=== PATIENT | female | born 1980 ===

== ENCOUNTER 2017-07-15 18:13 | Emergency (ER) | payer OTHER ==
[2017-07-15 18:20] VITALS: BMI 25.8
[2017-07-15 18:41] VITALS: PULSE 80; TEMP 98.1
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
[2017-07-15 19:10] LABS: BASO # 0.04 K/mm3 (0.0-2.0); BASO % 0.6 % (0.0-3.0); EOS # 0.1 (0.0-0.7); GRAN # 4.98 (1.4-6.5); GRAN % 72.8 % (50.0-68.0); HEMOGLOBIN 11.3 g/dL (12.0-16.0); LYMPH # 1.5 (1.2-3.4); LYMPH % 21.5 % (22.0-35.0); MEAN CELL VOLUME 82.8 fl (80.0-105.0); MEAN CORPUSCULAR HGB CONC 32.7 g/dl (31.0-37.0); MEAN PLATELET VOLUME 12.5 fl (7.0-11.0); MONO # 0.2 (0.1-0.6); MONO % 3.1 % (1.0-6.0); RBC 4.18 10^6/uL (3.5-6.1); RED CELL DISTRIBUTION WIDTH 14.3 % (11.5-14.5); WHITE BLOOD COUNT 6.8 10^3/ul (4.5-11.0)
[2017-07-15 19:11] LABS: PH,URINE 7.5 (4.7-8.0); URINE BILIRUBIN NEGATIVE (NEGATIVE); URINE BLOOD NEGATIVE (NEGATIVE); URINE GLUCOSE (UA) NEGATIVE (NEGATIVE); URINE LEUKOCYTE ESTERASE NEGATIVE Leu/uL (NEGATIVE); URINE NITRATE NEGATIVE (NEGATIVE); URINE PROTEIN NEGATIVE mg/dL (<30 mg/dL); URINE UROBILINOGEN 0.2 E.U./dL (<1 E.U./dL)
[2017-07-15 19:14] LABS: ALB/GLOB RATIO 1.3 (1.1-1.8); ALT/SGPT 36 U/L (7-56); AST/SGOT 42 U/L (14-36); BLOOD UREA NITROGEN 24 mg/dL (7-21); CALCIUM 9.9 mg/dL (8.4-10.5); GFR AFRICAN-AMERICAN > 60; GFR NON-AFRICAN AMERICAN > 60; URINE APPEARANCE CLEAR (CLEAR); URINE COLOR LIGHT YELLOW (YELLOW)
[2017-07-15 19:16] LABS: INR 0.97 (0.93-1.08); PROTHROMBIN TIME 11.1 SECONDS (9.4-12.5)
[2017-07-15 19:31] LABS: TROPONIN I < 0.01 ng/mL
[2017-07-15 20:37] VITALS: BP 128/67; RESP 16; O2SAT 100
--- NOTE | 2017-07-16 10:48 | CARD ---
APPROVED REPORT EKG Measurement Heart [id number] <Conclusion> Normal sinus rhythm Normal ECG
--- NOTE | 2017-07-16 19:25 | US ---
PROCEDURE: Left lower extremity venous US HISTORY: Leg pain and swelling. Evaluate for DVT. PHYSICIAN(S): Isreal Barahona MD. TECHNIQUE: Duplex sonography and color-flow Doppler with graded compression were used to evaluate the deep venous system of the left lower extremity. FINDINGS: The visualized deep venous system of the left lower extremity is sonographically normal and compressible. Normal wave forms and augmentation are seen. There is no sonographic evidence for deep venous thrombosis in the visualized segments of the left lower extremity. IMPRESSION: 1. No sonographic evidence for deep venous thrombosis in the visualized segments of the left lower extremity.
== END 2017-07-15 20:47 | disposition left against medical advice (07) ==
LOC: ED 18:13
DX: R07.9 Chest pain, unspecified (principal); M79.89 Other specified soft tissue disorders

== ENCOUNTER 2017-08-27 18:26 | Emergency (ER) | payer OTHER ==
[2017-08-27 18:47] VITALS: BMI 28.2
--- NOTE | 2017-08-27 19:08 | ED PDOC ---
Arrival/HPI <Kb Boyer - Last Filed: 08/27/17 22:24> - General Historian: Patient - History of Present Illness Time/Duration: Other (see hpi) Context: Home <Ritchie Gamez - Last Filed: 08/29/17 00:00> - General Chief Complaint: Abdominal Pain Time Seen by Provider: 08/27/17 19:07 - History of Present Illness Narrative History of Present Illness (Text): 08/27/17 19:07 Patient is not in her room. 08/27/17 19:20 This 37 yo female who denies pmh presents to this ED c/o generalized abdominal pain, urinary frequency since this morning. Patient denies diarrhea, recent travel, sick contact, dysuria, hematuria, weakness, paresthesias, or abnormal gait. (Ritchie Gamez) Past Medical History - Provider Review Nursing Documentation Reviewed: Yes - Cardiac Hx Cardiac Disorders: No - Pulmonary Hx Respiratory Disorders: No - Neurological Hx Neurological Disorder: No - HEENT Hx HEENT Disorder: No - Renal Hx Renal Disorder: No - Endocrine/Metabolic Hx Endocrine Disorders: No - Hematological/Oncological Hx Blood Disorders: No - Integumentary Hx Dermatological Disorder: No - Musculoskeletal/Rheumatological Hx Musculoskeletal Disorders: No - Gastrointestinal Hx Gastrointestinal Disorders: No - Genitourinary/Gynecological Hx Genitourinary Disorders: No - Psychiatric Hx Psychophysiologic Disorder: No Hx Substance Use: No - Surgical History Hx Section: Yes (x3) - Anesthesia Hx Anesthesia: Yes Hx Anesthesia Reactions: No Hx Malignant Hyperthermia: No <Ritchie Gamez - Last Filed: 08/29/17 00:00> Family/Social History - Physician Review Nursing Documentation Reviewed: Yes Family/Social History: Other (noncontributory) Smoking Status: Never Smoked Hx Alcohol Use: No Hx Substance Use: No <Ritchie Gamez - Last Filed: 08/29/17 00:00> Allergies/Home Meds <Kb Boyer - Last Filed: 08/27/17 22:24> <Ritchie Gamez - Last Filed: 08/29/17 00:00> Allergies/Adverse Reactions: Allergies methylprednisolone Allergy (Verified 08/27/17 18:38) ANAPHYLAXIS Home Medications: Home Meds Medication Instructions Recorded Confirmed Ibuprofen [Motrin Tab] 800 mg PO PRN PRN 07/15/17 08/27/17 Review of Systems - Review of Systems Constitutional: Normal. absent: Fatigue, Weight Change, Fevers Eyes: Normal ENT: Normal Respiratory: Normal. absent: SOB, Cough Cardiovascular: Normal. absent: Chest Pain, Palpitations Gastrointestinal: Abdominal Pain, Nausea, Vomiting, Other (no rectal bleeding). absent: Constipation, Diarrhea Genitourinary Female: Frequency, Hematuria. absent: Dysuria, Vaginal Bleeding, Vaginal Discharge Musculoskeletal: Normal. absent: Back Pain Skin: Normal. absent: Rash Neurological: Normal. absent: Headache, Dizziness, Focal Weakness, Gait Changes , Speech Changes, Facial Droop, Disequilibrium, Seizure Endocrine: Normal Hemo/Lymphatic: Normal Psychiatric: Normal <Gamez,Nah P - Last Filed: 08/29/17 00:00> Physical Exam Temperature: Afebrile Blood Pressure: Normal Pulse: Regular Respiratory Rate: Normal Appearance: Positive for: Well-Appearing, Non-Toxic, Comfortable Pain Distress: None Mental Status: Positive for: Alert and Oriented X 3 - Systems Exam Head: Present: Atraumatic, Normocephalic Pupils: Present: PERRL Extroacular Muscles: Present: EOMI Conjunctiva: Present: Normal Mouth: Present: Moist Mucous Membranes Neck: Present: Normal Range of Motion Respiratory/Chest: Present: Clear to Auscultation, Good Air Exchange. No: Respiratory Distress, Accessory Muscle Use Cardiovascular: Present: Regular Rate and Rhythm, Normal S1, S2. No: Murmurs Abdomen: Present: Tenderness (mild right lower quadrant abdominal tenderness). No: Distention, Peritoneal Signs, Rebound, Guarding, Hernias Back: Present: Normal Inspection. No: CVA Tenderness Upper Extremity: Present: Normal Inspection, Normal ROM. No: Cyanosis, Edema Lower Extremity: Present: Normal Inspection, Normal ROM. No: Edema Neurological: Present: GCS=15, CN II-XII Intact, Speech Normal Skin: Present: Warm, Dry, Normal Color. No: Rashes Psychiatric: Present: Alert, Oriented x 3, Normal Insight, Normal Concentration <Gamez,Nahim P - Last Filed: 08/29/17 00:00> Vital Signs Temp Pulse Resp BP Pulse Ox 08/28/17 00:15 97.9 F 88 16 122/80 99 08/27/17 22:05 88 16 112/80 99 08/27/17 20:15 82 16 120/70 99 08/27/17 18:39 98.3 F 99 H 19 110/60 98 Medical Decision Making <Kb Boyer - Last Filed: 08/27/17 22:24> Re-evaluation Time: 00:02 Reassessment Condition: Re-examined, Improved - Lab Interpretations I have reviewed the lab results: Yes Interpretation: No clinic. lab abnormalty <Ritchie Gamez - Last Filed: 08/29/17 00:00> ED Course and Treatment: 08/28/17 00:02 Re-evaluation. Patient feels better. Discussed results and plan with patient who expresses understanding. All questions answered and there is agreement with the plan to discharge home with instructions. Patient stable for discharge. Return if symptoms persist or worsen. Abdomen is soft, nt/nd. Patient remained stable during the course of ED visit. Patient tolerate po fluids. Patient was recommended to f/u pmd in 1-2 days, and to return to ED if symptoms worsen. (Ritchie Gamez) - Lab Interpretations Lab Results: 08/27/17 20:07 08/27/17 20:07 Lab Results 08/27/17 20:07: Sodium 136, Potassium 3.8, Chloride 105, Carbon Dioxide 24, Anion Gap 10, BUN 20, Creatinine 0.6 L, Est GFR ( Amer) > 60, Est GFR ( Non-Af Amer) > 60, Random Glucose 85, Calcium 9.5, Total Bilirubin < 0.1 L, AST 30, ALT 28, Alkaline Phosphatase 83, Total Protein 6.5, Albumin 3.6, Globulin 2.9, Albumin/Globulin Ratio 1.3, Lipase 83 08/27/17 20:07: WBC 7.4, RBC 4.33, Hgb 11.4 L, Hct 34.5 L, MCV 79.7 L D, MCH 26.3, MCHC 33.0, RDW 14.2, Plt Count 161, MPV 12.1 H, Gran % 66.5, Lymph % (Auto ) 24.0, [place] % (Auto) 5.8, Eos % (Auto) 3.3, Baso % (Auto) 0.4, Gran # 4.89, Lymph # (Auto) 1.8, [place] # (Auto) 0.4, Eos # (Auto) 0.2, Baso # (Auto) 0.03 08/27/17 19:40: Urine Color Light yellow, Urine Appearance Clear, Urine pH 7.0, Ur Specific [place] 1.010, Urine Protein Negative, Urine Glucose (UA) Negative, Urine Ketones Negative, Urine Blood Negative, Urine Nitrate Negative, Urine Bilirubin Negative, Urine Urobilinogen 0.2, Ur Leukocyte Esterase Negative, Urine HCG, Qual Negative - RAD Interpretation Narrative RAD Interpretations (Text): 08/27/17 23:57 [facility] Division of Radiology [address] [place] [address] Tel. no. Patient Name: LEXI INGRAM FINDINGS: Lung bases: Unremarkable. No mass. No consolidation. ABDOMEN: Liver: The liver is within normal limits for this noncontrast study. Gallbladder and bile ducts: Unremarkable. No calcified stones. No ductal dilation. Pancreas: Unremarkable. No ductal dilation. Spleen: Unremarkable. No splenomegaly. Adrenals: Unremarkable. No mass. Kidneys and ureters: Unremarkable. No obstructing stones. No hydronephrosis. Stomach and bowel: There is no wall thickening or pericolonic stranding to suggest colitis. No obstruction. Appendix: A normal appendix is identified. PELVIS: Bladder: Unremarkable. No stones. Reproductive: Unremarkable as visualized. ABDOMEN and PELVIS: Intraperitoneal space: Possible trace pelvic cul-de-sac free fluid. No free air. No significant fluid collection. Bones/joints: No acute fracture. No dislocation. Soft tissues: Unremarkable. Vasculature: Unremarkable. No abdominal aortic aneurysm. Lymph nodes: Unremarkable. No enlarged lymph nodes. IMPRESSION: No evidence of an acute intra-abdominal or pelvic abnormality. No evidence of acute appendicitis. Possible trace physiologic pelvic cul-de-sac free fluid. (Ritchie Gamez) Radiology Orders: 08/27/17 20:02 ABD & PELVIS W/O PO OR IV CONT [CT] Stat - Medication Orders Current Medication Orders: Discontinued Medications Famotidine (Pepcid) 20 mg IVP STAT STA Stop: 08/27/17 19:33 Last Admin: 08/27/17 20:08 Dose: 20 mg IVP Administration Document 08/27/17 20:08 MS (Rec: 04/12/18 20:08 MS [id number]) Charges for Administration # of IVP Administrations 1 Sodium Chloride (Sodium Chloride 0.9%) 1,000 mls @ 1,000 mls/hr IV .Q1H STA Stop: 08/27/17 20:31 Last Admin: 08/27/17 20:06 Dose: 1,000 mls/hr eMAR Start Stop Document 08/27/17 20:06 MS (Rec: 08/27/17 20:08 MS [id number]) Intravenous Solution Start Date 08/27/17 Start Time 20:08 End Date 08/27/17 End time 21:08 Total Infusion Time 60 Ketorolac Tromethamine (Toradol) 15 mg IVP STAT STA Stop: 08/27/17 19:37 Last Admin: 08/27/17 20:08 Dose: 15 mg MAR Pain Assessment Document 08/27/17 20:08 MS (Rec: 08/27/17 20:08 MS [id number]) Pain Reassessment Is this a pain reassessment? No Sleep Is patient sleeping during reassessment? No Presence of Pain Presence of Pain Yes Pain Scale Used Pain Scale Used Numeric Location Upper or Lower Lower Pain Location Body Site Abdomen Description Description Intermittent Intensity of Pain at present 6 Pain Behavior Withdrawal from Touch Rubbing Site IVP Administration Document 08/27/17 20:08 MS (Rec: 08/27/17 20:08 MS [id number]) Charges for Administration # of IVP Administrations 1 Ondansetron HCl (Zofran Inj) 4 mg IVP STAT STA Stop: 08/27/17 19:33 Last Admin: 08/27/17 20:08 Dose: 4 mg IVP Administration Document 08/27/17 20:08 MS (Rec: 08/27/17 20:09 [id number] Charges for Administration # of IVP Administrations 1 - PA / IRON LAUNDER OPERATOR / Resident Statement / has reviewed & agrees with the documentation as recorded. / has examined the patient and agrees with the treatment plan. <Kb Boyer - Last Filed: 08/27/17 22:24> Disposition/Present on Arrival <Kb Boyer - Last Filed: 08/27/17 22:24> - Present on Arrival Any Indicators Present on Arrival: No History of DVT/PE: No History of Uncontrolled Diabetes: No Urinary Catheter: No History of Decub. Ulcer: No History Surgical Site Infection Following: None - Disposition Have Diagnosis and Disposition been Completed?: Yes Disposition Time: 00:02 Patient Plan: Discharge <Ritchie Gamez - Last Filed: 08/29/17 00:00> - Disposition Diagnosis: Nonspecific abdominal pain Disposition: HOME/ ROUTINE Condition: GOOD Discharge Instructions (ExitCare): Acute Abdomen (Belly Pain), Adult (DC) Additional Instructions: Call private doctor for follow up visit in 1- 2 days. Take medication as instructed. Return to emergency if symptoms worsen. Have liquid diet for a couple of days. Prescriptions: Dicyclomine [Dicyclomine HCl] 10 mg PO TID PRN #20 cap PRN Reason: Gi Distress Famotidine [Pepcid] 40 mg PO DAILY #10 tablet Referrals: Shelbi Olmstead MD [Primary Care Provider] - Follow up with primary Forms: [facility] (Faroese), WORK NOTE
[2017-08-27] MEDS ORDERED: Sodium Chloride 0.9% 1,000 ML IV STA (19:32)
[2017-08-27 20:19] LABS: URINE BILIRUBIN NEGATIVE (NEGATIVE); URINE BLOOD NEGATIVE (NEGATIVE); URINE GLUCOSE (UA) NEGATIVE (NEGATIVE); URINE LEUKOCYTE ESTERASE NEGATIVE Leu/uL (NEGATIVE); URINE PROTEIN NEGATIVE mg/dL (<30 mg/dL); URINE UROBILINOGEN 0.2 E.U./dL (<1 E.U./dL)
[2017-08-27 20:20] LABS: URINE APPEARANCE CLEAR (CLEAR); URINE COLOR LIGHT YELLOW (YELLOW)
[2017-08-27 20:29] LABS: HCG,QUALITATIVE URINE NEGATIVE (NEGATIVE)
[2017-08-27 20:31] LABS: BASO # 0.03 K/mm3 (0.0-2.0); BASO % 0.4 % (0.0-3.0); EOS # 0.2 (0.0-0.7); EOS % 3.3 % (1.5-5.0); GRAN # 4.89 (1.4-6.5); GRAN % 66.5 % (50.0-68.0); HEMOGLOBIN 11.4 g/dL (12.0-16.0); LYMPH # 1.8 (1.2-3.4); MEAN CELL VOLUME 79.7 fl (80.0-105.0); MEAN CORPUSCULAR HEMOGLOBIN 26.3 pg (25.0-35.0); MEAN PLATELET VOLUME 12.1 fl (7.0-11.0); MONO # 0.4 (0.1-0.6); MONO % 5.8 % (1.0-6.0); RBC 4.33 10^6/uL (3.5-6.1); RED CELL DISTRIBUTION WIDTH 14.2 % (11.5-14.5); WHITE BLOOD COUNT 7.4 10^3/ul (4.5-11.0)
[2017-08-27 20:43] LABS: ALB/GLOB RATIO 1.3 (1.1-1.8); ALBUMIN 3.6 g/dL (3.0-4.8); ALT/SGPT 28 U/L (7-56); AST/SGOT 30 U/L (14-36); BLOOD UREA NITROGEN 20 mg/dL (7-21); CALCIUM 9.5 mg/dL (8.4-10.5); GFR AFRICAN-AMERICAN > 60; GFR NON-AFRICAN AMERICAN > 60; LIPASE 83 U/L (23-300)
--- NOTE | 2017-08-27 23:51 | CT ---
EXAM: CT Abdomen and Pelvis Without Intravenous Contrast CLINICAL HISTORY: 37 years old, female; Pain; Abdominal pain; Localized; Right lower quadrant (rlq); Prior surgery; Surgery type: (3) c-sections; Additional info: Rlq pain R/O appy TECHNIQUE: Axial computed tomography images of the abdomen and pelvis without intravenous contrast. All CT scans at this facility use one or more dose reduction techniques, viz.: automated exposure control; ma/kV adjustment per patient size (including targeted exams where dose is matched to indication; i.e. head); or iterative reconstruction technique. Coronal and sagittal reformatted images were created and reviewed. COMPARISON: No relevant prior studies available. FINDINGS: Lung bases: Unremarkable. No mass. No consolidation. ABDOMEN: Liver: The liver is within normal limits for this noncontrast study. Gallbladder and bile ducts: Unremarkable. No calcified stones. No ductal dilation. Pancreas: Unremarkable. No ductal dilation. Spleen: Unremarkable. No splenomegaly. Adrenals: Unremarkable. No mass. Kidneys and ureters: Unremarkable. No obstructing stones. No hydronephrosis. Stomach and bowel: There is no wall thickening or pericolonic stranding to suggest colitis. No obstruction. Appendix: A normal appendix is identified. PELVIS: Bladder: Unremarkable. No stones. Reproductive: Unremarkable as visualized. ABDOMEN and PELVIS: Intraperitoneal space: Possible trace pelvic cul-de-sac free fluid. No free air. No significant fluid collection. Bones/joints: No acute fracture. No dislocation. Soft tissues: Unremarkable. Vasculature: Unremarkable. No abdominal aortic aneurysm. Lymph nodes: Unremarkable. No enlarged lymph nodes. IMPRESSION: No evidence of an acute intra-abdominal or pelvic abnormality. No evidence of acute appendicitis. Possible trace physiologic pelvic cul-de-sac free fluid.
[2017-08-28 00:15] VITALS: RESP 16; O2SAT 99
[2017-08-28 00:16] VITALS: BP 122/80; PULSE 88; TEMP 97.9
== END 2017-08-28 00:15 | disposition home or self-care (01) ==
LOC: ED 18:26
DX: R10.31 Right lower quadrant pain (principal)
CPT/HCPCS: 74176; 80053; 81003; 83690; 84703; 85025; 96361; 96374; 96375; 99283; J1885; J2405; J7040